=== PATIENT | female | born 1950 | race Caucasian/White ===

== ENCOUNTER 2018-09-28 12:55 | Emergency (ER) | payer OTHER ==
[~2018-09-28] VITALS: Ht 149.9 cm; Wt 57.6 kg
[2018-09-28] MEDS ORDERED: PAXIL30 MG (13:23)
[2018-09-28] MEDS ORDERED: XANAX XR2 MG (13:23)
[2018-09-28] MEDS ORDERED: LANTUS SOL100 UNIT/1 (13:23)
== END 2018-09-28 15:34 | disposition home or self-care (01) ==
LOC: ER 12:55
DX: G89.11 Acute pain due to trauma (principal); M25.562 Pain in left knee; M12.562 Traumatic arthropathy, left knee